=== PATIENT | female | born 1995 | race Caucasian/White ===

== ENCOUNTER 2016-10-10 16:00 | Emergency (ER) | payer OTHER ==
[~2016-10-10] VITALS: Ht 162.5 cm; Wt 56.7 kg
[~2016-10-10 16:00] MED LIST: ATARAX25 MG PO; CIPROFLOXACIN500 MG PO; GUANFACINE1 MG PO; MACROBID100 M1 PO; MOTRIN400 MG PO; MOTRIN600 MG PO; PREDNICOT20 MG PO; PRENATAL1 TA1 PO; PYRIDIUM200 MG PO; ZOFRAN4 MG PO
[2016-10-10 16:43] LABS: BILIRUBIN NEGATIVE (NEGATIVE); BLOOD NEGATIVE (NEGATIVE); CLARITY CLEAR (CLEAR); COLOR YELLOW (YELLOW); GLUCOSE NEGATIVE (NEGATIVE); KETONE NEGATIVE (NEGATIVE); LEUKO ESTERASE TRACE (NEGATIVE); NITRITE NEGATIVE (NEGATIVE); PH 6.5 (5.0-9.0); PROTEIN NEGATIVE (NEGATIVE); UROBILINOGEN 0.2 E.U./dl (0.2-1.0)
[2016-10-10 16:47] LABS: BASO % 0.4 % (0.0-1.0); EOS # 0.1 10*3/uL (0.0-0.4); EOS % 1.3 % (1.0-4.0); HEMATOCRIT 39.8 % (37.0-47.0); HEMOGLOBIN 13.3 g/dl (12.0-16.0); LYMPH # 1.6 10*3/uL (1.3-4.4); LYMPH % 20.8 % (27.0-41.0); MEAN CELL VOLUME 89.2 fl (81.0-99.0); MEAN CORPUSCULAR HGB 29.8 pg (27.0-31.0); MEAN CORPUSCULAR HGB CONC 33.4 g/dl (33.0-37.0); MEAN PLATELET VOLUME 10.3 fl (9.6-12.3); MONO # 0.5 10*3/uL (0.1-1.0); MONO % 5.8 % (3.0-9.0); NEUT # 5.5 10*3/uL (2.3-7.9); NEUT % 71.4 % (47.0-73.0); PLATELET COUNT AUTOMATED 164 10*3/uL (130-400); RED BLOOD COUNT 4.46 10*6/uL (4.10-5.10); RED CELL DISTRI WIDTH 14.2 % (0-14.5); WHITE BLOOD COUNT 7.8 10*3/uL (4.8-10.8)
[2016-10-10 16:52] LABS: BACTERIA TRACE; EPITHELIAL CELLS 15-20; URINE REFLEX COMMENT YES (NO)
[2016-10-10 17:02] LABS: BUN 6 mg/dl (7-24); CARBON DIOXIDE 24 mmol/L (21-32); CHLORIDE 105 mmol/L (98-107); EST GLOM FILT AFRICAN AMERICAN > 60 ml/min; GLUCOSE 81 mg/dL (65-99); POTASSIUM 3.7 mmol/L (3.5-5.1); SODIUM 138 mmol/L (136-145)
== END 2016-10-10 17:23 | disposition home or self-care (01) ==
LOC: ED 16:00
PROVIDERS: Student in an Organized Health Care Education/Training Program
DX: O26.891 Other specified pregnancy related conditions, first trimester (principal); F17.200 Nicotine dependence, unspecified, uncomplicated; Z3A.13 13 weeks gestation of pregnancy

== ENCOUNTER 2018-02-17 01:31 | Emergency (ER) | payer OTHER ==
[~2018-02-17] VITALS: Ht 162.5 cm; Wt 49.4 kg
[2018-02-17] MEDS ORDERED: Motrin,Rufen800 MG PO (02:14)
== END 2018-02-17 02:37 | disposition home or self-care (01) ==
LOC: ED 01:31
DX: S40.211A Abrasion of right shoulder, initial encounter (principal); S80.212A Abrasion, left knee, initial encounter; S80.211A Abrasion, right knee, initial encounter; Y04.0XXA Assault by unarmed brawl or fight, initial encounter; Y93.89 Activity, other specified; Y92.89 Other specified places as the place of occurrence of the external cause; Y99.8 Other external cause status

== ENCOUNTER 2018-09-27 21:13 | Emergency (ER) | payer OTHER ==
[~2018-09-27] VITALS: Ht 162.5 cm; Wt 49.4 kg
--- NOTE | ~2018-09-27 | EKG ---
[place], [place] ELECTROCARDIOGRAM REPORT NAME: MADELIN CASTANON UNIT #: [id number] ROOM: DOCTOR: EPIPHANY DRAFT REPORT BIRTHDATE: [birth year] [facility] Test Date: 2018-09-27 Test Time: 21:20:28 Pat Name: MADELIN CASTANON Department: Room: Gender: F Motor Tester: CYNDIE : 1995 Requested By: WALDO MOORE Order Number: [id number] Reading MD: Yo Charlton MD Measurements Intervals [place] Rate: 97 P: 78 WV: 172 QRS: 77 QRSD: 84 T: 49 QT: 329 QTc: 418 Interpretive Statements Sinus rhythm Baseline wander in lead(s) V1,V5,V6 Electronically Signed On 09-28-2018 8:29:53 PST by Yo Charlton MD CM:EKGRPT:ELECTROCARDIOGRAM REPORT 19 0829 WALDO MOORE MD EPIPHANY DRAFT REPORT WALDO MOORE MD
[~2018-09-27 21:13] MED LIST changes: +Motrin,Rufen800 MG PO
[2018-09-27 21:26] LABS: BASO # 0.1 10*3/uL (0.0-0.1); BASO % 0.8 % (0.0-1.0); EOS # 0.2 10*3/uL (0.0-0.4); EOS % 2.5 % (1.0-4.0); HEMATOCRIT 45.9 % (37.0-47.0); HEMOGLOBIN 14.9 g/dl (12.0-16.0); LYMPH % 40.8 % (27.0-41.0); MEAN CELL VOLUME 91.6 fl (81.0-99.0); MEAN CORPUSCULAR HGB 29.7 pg (27.0-31.0); MEAN CORPUSCULAR HGB CONC 32.5 g/dl (33.0-37.0); MEAN PLATELET VOLUME 10.7 fl (9.6-12.3); MONO # 0.5 10*3/uL (0.1-1.0); MONO % 6.4 % (3.0-9.0); NEUT # 3.6 10*3/uL (2.3-7.9); NEUT % 49.4 % (47.0-73.0); PLATELET COUNT AUTOMATED 186 10*3/uL (130-400); RED BLOOD COUNT 5.01 10*6/uL (4.10-5.10); RED CELL DISTRI WIDTH 13.7 % (0-14.5); WHITE BLOOD COUNT 7.3 10*3/uL (4.8-10.8)
[2018-09-27 21:37] LABS: ACT PARTIAL THROMBO TIME 25.2 SECONDS (20.8-31.5)
[2018-09-27 21:40] LABS: BILIRUBIN NEGATIVE (NEGATIVE); BLOOD 3+ (NEGATIVE); CLARITY CLEAR (CLEAR); COLOR YELLOW (YELLOW); GLUCOSE NEGATIVE (NEGATIVE); KETONE NEGATIVE (NEGATIVE); LEUKO ESTERASE TRACE (NEGATIVE); NITRITE NEGATIVE (NEGATIVE); PH 6.5 (5.0-9.0); UROBILINOGEN 0.2 E.U./dl (0.2-1.0)
[2018-09-27 21:47] LABS: ALBUMIN 4.1 gm/dl (3.1-4.5); ALKALINE PHOSPHATASE 66 U/L (45-117); BUN 12 mg/dl (7-24); CHLORIDE 107 mmol/L (98-107); SGOT/AST 18 IU/L (3-35); SGPT/ALT 17 U/L (12-78); SODIUM 140 mmol/L (136-145); TOTAL PROTEIN 8.3 gm/dL (6.4-8.2)
[2018-09-27 21:48] LABS: TROPONIN I < 0.015 ng/ml (<0.045)
[2018-09-27] MEDS ORDERED: PROAIR HFA8.5 GM INH (23:03)
[2018-09-27] MEDS ORDERED: Motrin,Rufen800 MG PO (23:03)
== END 2018-09-27 23:26 | disposition home or self-care (01) ==
LOC: ED 21:13
PROVIDERS: Emergency Medicine Emergency Medical Services; Physician Assistant
DX: K01.1 Impacted teeth (principal); R07.89 Other chest pain; K08.89 Other specified disorders of teeth and supporting structures; F17.200 Nicotine dependence, unspecified, uncomplicated

== ENCOUNTER 2018-10-24 17:18 | Emergency (ER) | payer OTHER ==
[~2018-10-24] VITALS: Ht 162.5 cm; Wt 52.2 kg
[~2018-10-24 17:18] MED LIST changes: +PROAIR HFA8.5 GM INH
[2018-10-24] MEDS ORDERED: PEPCID20 MG PO (18:28)
== END 2018-10-24 18:32 | disposition home or self-care (01) ==
LOC: ED 17:18
DX: K21.9 Gastro-esophageal reflux disease without esophagitis (principal)

== ENCOUNTER → 2020-09-17 | Outpatient (CLI) | payer OTHER ==
[~2020-09-17] MED LIST changes: +PEPCID20 MG PO
== END | disposition home or self-care (01) ==
LOC: COVID19 10:18
PROVIDERS: ATTEND Family Medicine
DX: U07.1 COVID-19 (principal)

== ENCOUNTER 2024-05-23 14:39 | Emergency (ER) | payer OTHER ==
[~2024-05-23] VITALS: Ht 162.5 cm; Wt 54.4 kg
[2024-05-23 16:02] LABS: BASO # 0.1 10*3/uL (0.0-0.1); BASO % 0.7 % (0.0-1.0); EOS # 0.3 10*3/uL (0.0-0.4); EOS % 3.9 % (1.0-4.0); LYMPH # 1.6 10*3/uL (1.3-4.4); LYMPH % 23.1 % (27.0-41.0); MEAN CELL VOLUME 94.3 fl (81.0-99.0); MEAN CORPUSCULAR HGB 30.8 pg (27.0-31.0); MEAN CORPUSCULAR HGB CONC 32.7 g/dl (33.0-37.0); MEAN PLATELET VOLUME 9.8 fl (9.6-12.3); MONO # 0.6 10*3/uL (0.1-1.0); MONO % 8.4 % (3.0-9.0); NEUT # 4.4 10*3/uL (2.3-7.9); NEUT % 63.6 % (47.0-73.0); PLATELET COUNT AUTOMATED 157 10*3/uL (130-400); RED BLOOD COUNT 4.35 10*6/uL (4.10-5.10); RED CELL DISTRI WIDTH 13.6 % (0-14.5); WHITE BLOOD COUNT 6.9 10*3/uL (4.8-10.8)
[2024-05-23 16:13] LABS: ACT PARTIAL THROMBO TIME 29.4 SECONDS (20.0-32.1)
[2024-05-23 16:16] LABS: BUN 9 mg/dl (9-23); CHLORIDE 103 mmol/L (98-107); POTASSIUM 3.8 mmol/L (3.4-5.1)
[2024-05-23] MEDS ORDERED: ELIQUIS5 M1 PO (17:22)
[2024-05-23] MEDS ORDERED: VIBRAMYCIN100 MG PO (17:22)
== END 2024-05-23 17:25 | disposition home or self-care (01) ==
LOC: ED 14:39
PROVIDERS: Nurse Practitioner
DX: I82.441 Acute embolism and thrombosis of right tibial vein (principal); L03.115 Cellulitis of right lower limb; L03.116 Cellulitis of left lower limb; F17.200 Nicotine dependence, unspecified, uncomplicated